=== PATIENT | female | born 1940 | race Caucasian/White ===

== ENCOUNTER 2017-10-13 12:45 | Day surgery (SDC) | payer MEDICARE, BC ==
[2017-10-13 13:21] VITALS: TEMP 98.3
[2017-10-13] MEDS ORDERED: BUPIVACAINE HCL 0.25% MPF 10 ML SOL INFIL ONE (13:40)
[2017-10-13] MEDS ORDERED: DEXAMETHASONE SOD PHOS PF 10 MG/ML SOL IJ ONE (13:40)
[2017-10-13 14:12] VITALS: BP 149/70; PULSE 69; RESP 20; O2SAT 99
== END 2017-10-13 14:25 | disposition home or self-care (01) | DRG 552 ==
LOC: SURG 12:45
PROVIDERS: ATTEND Nurse Anesthetist, Certified Registered
DX: M48.062 Spinal stenosis, lumbar region with neurogenic claudication (principal)
CPT/HCPCS: J1100

== ENCOUNTER 2017-12-09 11:45 | Day surgery (SDC) | payer MEDICARE, BC ==
[2017-12-09] MEDS ORDERED: LIDOCAINE HCL 1% MPF 30 SOL ONE (12:57)
[2017-12-09] MEDS ORDERED: BUPIVACAINE HCL 0.25% MPF 30 ML SOL INFIL ONE (12:57)
[2017-12-09 13:05] VITALS: RESP 16; TEMP 98.4
[2017-12-09 13:12] VITALS: BP 169/100; PULSE 74; O2SAT 97
== END 2017-12-09 13:48 | disposition home or self-care (01) | DRG 554 ==
LOC: SURG 11:45
PROVIDERS: ATTEND Nurse Anesthetist, Certified Registered
DX: M12.88 Other specific arthropathies, not elsewhere classified, other specified site (principal); E11.9 Type 2 diabetes mellitus without complications
CPT/HCPCS: J2001

== ENCOUNTER 2018-01-10 13:53 | Day surgery (SDC) | payer MEDICARE, BC ==
[2018-01-10] MEDS ORDERED: ROPIVACAINE HYDROCHLORIDE 5 MG/ML SOL ONE (14:05)
[2018-01-10] MEDS ORDERED: TRIAMCINOLONE ACETONIDE 40 MG/ML SUS ONE (14:05)
[2018-01-10] MEDS ORDERED: LIDOCAINE HCL 1% MPF 30 SOL ONE (14:07)
[2018-01-10 14:42] VITALS: O2SAT 97
[2018-01-10 15:07] VITALS: BP 161/74; PULSE 68; RESP 20; TEMP 98
== END 2018-01-10 15:30 | disposition home or self-care (01) | DRG 313 ==
LOC: SURG 13:53
PROVIDERS: ATTEND Nurse Anesthetist, Certified Registered
DX: R07.89 Other chest pain (principal)
CPT/HCPCS: J2795; J2001; J3300

== ENCOUNTER 2018-05-22 20:48 | Emergency (ER) | payer MEDICARE, BC ==
[2018-05-22 21:04] VITALS: RESP 20; TEMP 97.8
[2018-05-22] MEDS ORDERED: BENZOCAINE/MENTHOL 1 SPR TOP PRN (21:12)
[2018-05-22] MEDS ORDERED: TDAP VACCINE 0.5 ML SUS IM ONE ×2 (21:51→22:04)
[2018-05-22] MEDS ORDERED: BACITRACIN 500 U/GM OIN TOP ONE ×2 (22:04→22:10)
[2018-05-22 23:15] VITALS: BP 190/79; PULSE 68; O2SAT 97
== END 2018-05-22 23:00 | disposition home or self-care (01) | DRG 605 ==
LOC: ED 20:48
DX: S01.01XA Laceration without foreign body of scalp, initial encounter (principal); S09.90XA Unspecified injury of head, initial encounter; W19.XXXA Unspecified fall, initial encounter
CPT/HCPCS: 12002; 90471; 90715; 99284; A6402; A9270-GY

== ENCOUNTER 2018-06-30 10:22 | Day surgery (SDC) | payer MEDICARE, BC ==
[2018-06-30] MEDS ORDERED: TRIAMCINOLONE ACETONIDE 40 MG/ML SUS ONE (11:13)
[2018-06-30] MEDS ORDERED: BUPIVACAINE HCL 0.25% MPF 30 ML SOL INFIL ONE (11:14)
[2018-06-30 11:40] VITALS: PULSE 62; RESP 16; TEMP 98.3; O2SAT 97
[2018-06-30 11:55] VITALS: BP 197/93
== END 2018-06-30 12:06 | disposition home or self-care (01) | DRG 204 ==
LOC: SURG 10:22
PROVIDERS: ATTEND Nurse Anesthetist, Certified Registered
DX: R07.1 Chest pain on breathing (principal)
CPT/HCPCS: J3300

== ENCOUNTER 2018-08-23 11:58 | Day surgery (SDC) | payer MEDICARE, BC ==
[2018-08-23 12:47] VITALS: RESP 16
[2018-08-23] MEDS ORDERED: LIDOCAINE HCL 1% MPF 30 SOL ONE (12:55)
[2018-08-23] MEDS ORDERED: BUPIVACAINE HCL 0.5% MPF 10 ML SOL ONE (12:55)
[2018-08-23 13:36] VITALS: PULSE 71; TEMP 98.1; O2SAT 97
[2018-08-23 13:56] VITALS: BP 135/57
== END 2018-08-23 13:59 | disposition home or self-care (01) | DRG 554 ==
LOC: SURG 11:58
PROVIDERS: ATTEND Nurse Anesthetist, Certified Registered
DX: M12.88 Other specific arthropathies, not elsewhere classified, other specified site (principal); E11.9 Type 2 diabetes mellitus without complications
CPT/HCPCS: J2001

== ENCOUNTER 2018-09-07 13:02 | Day surgery (SDC) | payer MEDICARE, BC ==
[2018-09-07] MEDS ORDERED: BUPIVACAINE HCL 0.5% MPF 10 ML SOL ONE (14:01)
[2018-09-07] MEDS ORDERED: LIDOCAINE HCL 1% MPF 30 SOL ONE (14:01)
[2018-09-07 14:39] VITALS: PULSE 65; RESP 14; TEMP 98.1; O2SAT 98
[2018-09-07 14:50] VITALS: BP 147/78
== END 2018-09-07 14:56 | disposition home or self-care (01) | DRG 554 ==
LOC: SURG 13:02
PROVIDERS: ATTEND Nurse Anesthetist, Certified Registered
DX: M12.88 Other specific arthropathies, not elsewhere classified, other specified site (principal); E11.9 Type 2 diabetes mellitus without complications
CPT/HCPCS: J2001

== ENCOUNTER 2018-09-26 09:13 | Day surgery (SDC) | payer MEDICARE, BC ==
[2018-09-26] MEDS ORDERED: SODIUM CHLORIDE 0.9% FLUSH 10 ML SOL IV ONE (10:09)
[2018-09-26] MEDS ORDERED: LIDOCAINE HCL 2% MPF 10 ML SOL ONE (10:27)
[2018-09-26] MEDS ORDERED: LIDOCAINE HCL 1% MPF 30 SOL ONE (10:28)
[2018-09-26] MEDS ORDERED: BUPIVACAINE HCL 0.25% MPF 30 ML SOL INFIL ONE (10:28)
[2018-09-26] MEDS ORDERED: MIDAZOLAM 2 MG/2 ML SOL ONE (10:28)
[2018-09-26] MEDS ORDERED: FENTANYL 100MCG/2ML SOL ONE (10:28)
[2018-09-26] MEDS: TRIAMCINOLONE ACETONIDE 40 MG/ML SUS ONE ×2 (11:03→11:24)
[2018-09-26 11:22] VITALS: PULSE 63; RESP 16
[2018-09-26 12:04] VITALS: BP 141/89; TEMP 98.2; O2SAT 99
== END 2018-09-26 12:00 | disposition home or self-care (01) | DRG 554 ==
LOC: SURG 09:13
PROVIDERS: ATTEND Nurse Anesthetist, Certified Registered
DX: M12.9 Arthropathy, unspecified (principal)
CPT/HCPCS: J2250; J3010; J2001; J3300

== ENCOUNTER 2018-10-30 06:37 | Emergency (ER) | payer MEDICARE, BC ==
[2018-10-30 06:46] VITALS: TEMP 98.1
[2018-10-30] MEDS ORDERED: ONDANSETRON HCL 4 MG/2 ML SOL IV ONE (07:20)
[2018-10-30] MEDS ORDERED: ALBUTEROL/IPRATROPIUM 1 VIAL SOL INH ONE (07:21)
[2018-10-30] MEDS ORDERED: ONDANSETRON HCL 4 MG/2 ML SOL ONE (07:24)
[2018-10-30] MEDS ORDERED: ALBUTEROL/IPRATROPIUM 1 VIAL SOL ONE (07:24)
[2018-10-30] MEDS ORDERED: SODIUM CHLORIDE 0.9% 1000ML 1,000 ML IV SCH (07:30)
[2018-10-30 07:37] VITALS: RESP 20
[2018-10-30 07:37] LABS: HEMATOCRIT 39 % (35-47); HEMOGLOBIN 12.8 gm/dl (12.0-15.5); MEAN CORPUSCULAR HEMOGLOBIN 30.9 pg (27.0-32.0); MEAN CORPUSCULAR HGB CONC 33.1 gm/dl (32.0-36.0); MEAN CORPUSCULAR VOLUME 93 fL (81-99)
[2018-10-30 07:57] LABS: CALCIUM 8.8 mg/dl (8.5-10.1); CARBON DIOXIDE 22.2 mEq/L (21-32); CREATININE 1.28 mg/dl (0.60-1.00)
[2018-10-30 07:59] LABS: POTASSIUM 2.9 mMol/L (3.5-5.1)
[2018-10-30 08:01] LABS: METAMYELOCYTES%(MANUAL) 1; MONOCYTES % (MANUAL) 2 % (0-12); NEUTROPHILS % (MANUAL) 86 % (37-80); PLATELET MORPHOLOGY COMMENT ADEQUATE; POIKILOCYTOSIS SLIGHT AMT
[2018-10-30 08:02] LABS: BURR CELLS PRESENT; LYMPHOCYTES % (MANUAL) 11 % (10-50)
[2018-10-30] MEDS ORDERED: POTASSIUM CHLORIDE 10 MEQ TER PO ONE (08:24)
[2018-10-30 08:28] LABS: BAND NEUTROPHILS % (MANUAL) 0 %; BASOPHILS % (MANUAL) 0 % (0-3); EOSINOPHILS % (MANUAL) 0 % (0-9)
[2018-10-30] MEDS ORDERED: POTASSIUM CHLORIDE 10 MEQ TER ONE (08:29)
[2018-10-30 10:40] VITALS: BP 144/94; PULSE 91; O2SAT 98
== END 2018-10-30 10:32 | disposition home or self-care (01) | DRG 194 ==
LOC: ED 06:37
DX: J18.9 Pneumonia, unspecified organism (principal); N17.9 Acute kidney failure, unspecified; E87.6 Hypokalemia; R06.2 Wheezing
CPT/HCPCS: 36415; 71045; 80048; 85007; 85027; 96365; 96374; 99284; J2405; A9270-GY

== ENCOUNTER 2018-10-31 13:32 | Emergency (ER) | payer MEDICARE, BC ==
[2018-10-31 13:45] VITALS: RESP 18; TEMP 97.2
[2018-10-31 14:18] LABS: LACTIC ACID 1.4 mMol/L (0.0-2.0)
[2018-10-31 14:25] LABS: CALCIUM 8.9 mg/dl (8.5-10.1); CARBON DIOXIDE 28.1 mEq/L (21-32); POTASSIUM 4.2 mMol/L (3.5-5.1)
[2018-10-31] MEDS ORDERED: ONDANSETRON HCL 4 MG/2 ML SOL ONE (14:32)
[2018-10-31 14:35] LABS: HEMATOCRIT 38 % (35-47); HEMOGLOBIN 12.7 gm/dl (12.0-15.5); MEAN CORPUSCULAR HEMOGLOBIN 31.5 pg (27.0-32.0); MEAN CORPUSCULAR VOLUME 95 fL (81-99)
[2018-10-31] MEDS ORDERED: ONDANSETRON HCL 4 MG/2 ML SOL IV ONE (14:36)
[2018-10-31] MEDS ORDERED: SODIUM CHLORIDE 0.9% 500 ML 500 ML IV ONE (14:37)
[2018-10-31] MEDS ORDERED: SODIUM CHLORIDE 0.9% FLUSH 10 ML SOL IV PRN (14:38)
[2018-10-31] MEDS ORDERED: KETOROLAC TROMETHAMINE 30 MG/ML SOL ONE (14:45)
[2018-10-31 15:02] LABS: BAND NEUTROPHILS % (MANUAL) 5 %; BASOPHILS % (MANUAL) 0 % (0-3); EOSINOPHILS % (MANUAL) 0 % (0-9); LYMPHOCYTES % (MANUAL) 6 % (10-50); MONOCYTES % (MANUAL) 1 % (0-12); NEUTROPHILS % (MANUAL) 88 % (37-80); NORMAL RBCS PRESENT
[2018-10-31 15:21] VITALS: BP 182/85; PULSE 74; O2SAT 97
== END 2018-10-31 15:27 | disposition home or self-care (01) | DRG 392 ==
LOC: ED 13:32
DX: A08.4 Viral intestinal infection, unspecified (principal); E11.9 Type 2 diabetes mellitus without complications
CPT/HCPCS: 36415; 80048; 85007; 85027; 96365; 96374; 99283; 99284; J1885; J2405

== ENCOUNTER 2018-11-02 12:23 | Inpatient (IN) | payer MEDICARE, BC ==
[2018-11-02] MEDS ORDERED: SODIUM CHLORIDE 0.9% 1000ML 1,000 ML IV ONE (13:03)
[2018-11-02] MEDS ORDERED: ALBUTEROL NEB SOL 2.5MG/3ML 1 VIAL SOL NEB PRN (13:08)
[2018-11-02 13:57] LABS: BASOPHILS % (AUTO) 1 % (0-3); EOSINOPHILS % (AUTO) 0 % (0-9); HEMATOCRIT 37 % (35-47); HEMOGLOBIN 12.4 gm/dl (12.0-15.5); LYMPHOCYTES % (AUTO) 17.5 % (10-50); MEAN CORPUSCULAR HEMOGLOBIN 31.2 pg (27.0-32.0); MEAN CORPUSCULAR HGB CONC 33.3 gm/dl (32.0-36.0); MEAN CORPUSCULAR VOLUME 94 fL (81-99); MONOCYTES % (AUTO) 4.5 % (0-12); NEUTROPHILS % (AUTO) 76.9 % (37-80)
[2018-11-02 13:59] LABS: ALBUMIN 2.7 gm/dl (3.4-5.0); BILIRUBIN,TOTAL 0.7 mg/dl (0.2-1.0); CALCIUM 9.1 mg/dl (8.5-10.1); CARBON DIOXIDE 25.6 mEq/L (21-32); CREATININE 1.13 mg/dl (0.60-1.00); POTASSIUM 3.8 mMol/L (3.5-5.1); TOTAL PROTEIN 6.9 gm/dl (6.4-8.2)
[2018-11-02 14:05] LABS: LACTIC ACID 1.7 mMol/L (0.0-2.0)
[2018-11-02] MEDS: ALBUTEROL/IPRATROPIUM 1 VIAL SOL INH SCH ×3 (14:26→21:10)
[2018-11-02] MEDS ORDERED: POTASSIUM CHLORIDE 2 MEQ/ML SOL IV ONE (15:23)
[2018-11-02] MEDS: SODIUM CHLORIDE 0.45% 1000 ML 1,000 ML with POTASSIUM CHLORIDE 2 MEQ/ML 20 MEQ IV SCH (15:31)
[2018-11-02] MEDS ORDERED: SODIUM CHLORIDE 0.9% 50 ML 50 ML IV ONE (16:34)
[2018-11-02] MEDS ORDERED: CEFTRIAXONE 1 GM PDS ONE (16:34)
[2018-11-02] MEDS: CEFTRIAXONE 1 GM PDS 1 GM in SODIUM CHLORIDE 0.9% 50 ML 50 ML IV SCH (17:00)
[2018-11-02] MEDS ORDERED: DM/GUAIFENESIN SYRUP 10 ML SYRP PO PRN (17:45)
[2018-11-02] MEDS: ONDANSETRON 4 MG ODT PO PRN (20:47)
[2018-11-02] MEDS ORDERED: RANITIDINE HCL 150 MG TAB PO SCH (21:00)
[2018-11-02] MEDS: GABAPENTIN 300 MG CAP PO SCH (21:03)
[2018-11-02] MEDS: SERTRALINE HYDROCHLORIDE 50 MG TAB PO SCH (21:04)
[2018-11-02] MEDS: LISINOPRIL 5 MG TAB PO SCH (21:04)
[2018-11-02] MEDS: ACETAMINOPHEN 325 MG PO SCH (21:04)
[2018-11-02] MEDS: GLIMEPIRIDE 2 MG TAB PO SCH (21:09)
[2018-11-02] MEDS: ZOLPIDEM TARTRATE 5 MG TAB PO SCH (21:09)
[2018-11-02] MEDS: ENOXAPARIN 40 MG SOL SC SCH (21:10)
[2018-11-02] MEDS: TRIAMCINOLONE 0.1% CREAM CRE TOP SCH (22:06)
[2018-11-02] MEDS: ACYCLOVIR 400 MG TAB PO SCH (22:06)
[2018-11-03] MEDS ORDERED: POTASSIUM CHLORIDE 2 MEQ/ML SOL IV ONE ×3 (01:39→17:10)
[2018-11-03] MEDS: SODIUM CHLORIDE 0.45% 1000 ML 1,000 ML with POTASSIUM CHLORIDE 2 MEQ/ML 20 MEQ IV SCH ×3 (01:46→17:27)
[2018-11-03] MEDS: FAMOTIDINE 20 MG TAB PO SCH ×2 (06:33→17:00)
[2018-11-03] MEDS ORDERED: LEVOTHYROXINE SODIUM 50 MCG TAB PO SCH (09:00)
[2018-11-03] MEDS ORDERED: CEFTRIAXONE 1 GM PDS ONE (09:45)
[2018-11-03] MEDS ORDERED: SODIUM CHLORIDE 0.9% 50 ML 50 ML IV ONE (09:45)
[2018-11-03] MEDS: CEFTRIAXONE 1 GM PDS 1 GM in SODIUM CHLORIDE 0.9% 50 ML 50 ML IV SCH (09:59)
[2018-11-03] MEDS: GLIMEPIRIDE 2 MG TAB PO SCH ×3 (10:02→20:45)
[2018-11-03] MEDS: GABAPENTIN 300 MG CAP PO SCH ×5 (10:05→20:47)
[2018-11-03] MEDS: ONDANSETRON 4 MG ODT PO PRN (10:05)
[2018-11-03] MEDS: ENOXAPARIN 40 MG SOL SC SCH (10:07)
[2018-11-03] MEDS: TRIAMCINOLONE 0.1% CREAM CRE TOP SCH ×2 (10:08→20:59)
[2018-11-03] MEDS: ACYCLOVIR 400 MG TAB PO SCH ×5 (10:08→20:48)
[2018-11-03] MEDS: POLYETHYLENE GLYCOL 17 GM/1 TBS PDS PO SCH (10:08)
[2018-11-03] MEDS: ACETAMINOPHEN 325 MG PO SCH ×4 (10:11→23:01)
[2018-11-03] MEDS: ALBUTEROL/IPRATROPIUM 1 VIAL SOL INH SCH ×4 (10:16→20:50)
[2018-11-03] MEDS: LISINOPRIL 5 MG TAB PO SCH (11:15)
[2018-11-03] MEDS: HYDROCHLOROTHIAZIDE 25 MG TAB PO SCH (11:15)
[2018-11-03] MEDS: SERTRALINE HYDROCHLORIDE 50 MG TAB PO SCH (11:15)
[2018-11-03] MEDS: AZELASTINE HYDROCHLORIDE NAS SCH ×2 (11:30→20:49)
[2018-11-03] MEDS: CHLORHEXIDINE MC SCH ×3 (11:50→20:49)
[2018-11-03] MEDS: ZOLPIDEM TARTRATE 5 MG TAB PO SCH (22:02)
[2018-11-04] MEDS ORDERED: POTASSIUM CHLORIDE 2 MEQ/ML SOL IV ONE ×2 (00:36→08:01)
[2018-11-04] MEDS: SODIUM CHLORIDE 0.45% 1000 ML 1,000 ML with POTASSIUM CHLORIDE 2 MEQ/ML 20 MEQ IV SCH ×2 (01:02→12:20)
[2018-11-04] MEDS: FAMOTIDINE 20 MG TAB PO SCH (06:54)
[2018-11-04] MEDS ORDERED: LEVOTHYROXINE SODIUM 50 MCG TAB PO SCH (07:00)
[2018-11-04 07:08] LABS: BASOPHILS % (AUTO) 1 % (0-3); EOSINOPHILS % (AUTO) 3 % (0-9); HEMATOCRIT 34 % (35-47); HEMOGLOBIN 11.4 gm/dl (12.0-15.5); MEAN CORPUSCULAR HEMOGLOBIN 31.4 pg (27.0-32.0); MEAN CORPUSCULAR HGB CONC 33.4 gm/dl (32.0-36.0); MEAN CORPUSCULAR VOLUME 94 fL (81-99); MONOCYTES % (AUTO) 7.5 % (0-12); NEUTROPHILS % (AUTO) 56.7 % (37-80)
[2018-11-04 07:13] LABS: CALCIUM 8.9 mg/dl (8.5-10.1); CARBON DIOXIDE 26.3 mEq/L (21-32); CREATININE 0.91 mg/dl (0.60-1.00); POTASSIUM 4.7 mMol/L (3.5-5.1)
[2018-11-04 07:40] VITALS: BP 146/72; TEMP 98.3
[2018-11-04] MEDS: GLIMEPIRIDE 2 MG TAB PO SCH (08:23)
[2018-11-04] MEDS: HYDROCHLOROTHIAZIDE 25 MG TAB PO SCH (08:24)
[2018-11-04] MEDS: POLYETHYLENE GLYCOL 17 GM/1 TBS PDS PO SCH (08:25)
[2018-11-04] MEDS: GABAPENTIN 300 MG CAP PO SCH ×2 (08:25→12:26)
[2018-11-04] MEDS: LISINOPRIL 5 MG TAB PO SCH (08:26)
[2018-11-04] MEDS: ACETAMINOPHEN 325 MG PO SCH (08:26)
[2018-11-04] MEDS: ACYCLOVIR 400 MG TAB PO SCH ×2 (08:27→12:25)
[2018-11-04] MEDS: SERTRALINE HYDROCHLORIDE 50 MG TAB PO SCH (08:27)
[2018-11-04] MEDS ORDERED: FLUTICASONE PROPIONATE SPR NAS SCH (09:00)
[2018-11-04] MEDS ORDERED: SODIUM CHLORIDE 0.9% 50 ML 50 ML IV ONE (09:16)
[2018-11-04] MEDS ORDERED: CEFTRIAXONE 1 GM PDS ONE (09:16)
[2018-11-04] MEDS: CEFTRIAXONE 1 GM PDS 1 GM in SODIUM CHLORIDE 0.9% 50 ML 50 ML IV SCH (09:21)
[2018-11-04] MEDS: CHLORHEXIDINE MC SCH (09:22)
[2018-11-04] MEDS: AZELASTINE HYDROCHLORIDE NAS SCH (09:22)
[2018-11-04] MEDS: TRIAMCINOLONE 0.1% CREAM CRE TOP SCH (09:26)
[2018-11-04] MEDS: ALBUTEROL/IPRATROPIUM 1 VIAL SOL INH SCH ×2 (09:37→12:25)
[2018-11-04 09:38] VITALS: RESP 18
[2018-11-04] MEDS: ENOXAPARIN 40 MG SOL SC SCH (09:39)
[2018-11-04 12:41] VITALS: PULSE 75; O2SAT 98
== END 2018-11-04 13:25 | disposition home or self-care (01) | DRG 391 ==
LOC: ACUTE CARE 12:25
PROVIDERS: ADMIT Family Medicine; ATTEND Family Medicine
DX: R19.7 Diarrhea, unspecified (principal); J18.1 Lobar pneumonia, unspecified organism; E11.22 Type 2 diabetes mellitus with diabetic chronic kidney disease; N18.3 Chronic kidney disease, stage 3 (moderate); I10 Essential (primary) hypertension; R06.02 Shortness of breath; B02.9 Zoster without complications; R53.1 Weakness
CPT/HCPCS: 36415; 80048; 80053; 82962; 85025; 87040; 87205; 94150; 94640; 94760; J0696; J1650; J3480; A6232; A9270-GY

== ENCOUNTER 2018-11-23 12:56 | Day surgery (SDC) | payer MEDICARE, BC ==
[2018-11-23] MEDS ORDERED: TRIAMCINOLONE ACETONIDE 40 MG/ML SUS ONE (13:52)
[2018-11-23] MEDS ORDERED: BUPIVACAINE HCL 0.25% MPF 30 ML SOL INFIL ONE (13:53)
[2018-11-23 14:08] VITALS: PULSE 66
[2018-11-23 14:28] VITALS: BP 154/83; RESP 18; TEMP 97.4; O2SAT 98
== END 2018-11-23 14:48 | disposition home or self-care (01) | DRG 313 ==
LOC: SURG 12:56
PROVIDERS: ATTEND Nurse Anesthetist, Certified Registered
DX: R07.89 Other chest pain (principal); R73.03 Prediabetes
CPT/HCPCS: J3300

== ENCOUNTER 2018-12-06 09:46 | Day surgery (SDC) | payer MEDICARE, BC ==
[~2018-12-06 09:46] MED LIST: MIDAZOLAM 2 MG/2 ML SOL ONE
[2018-12-06] MEDS ORDERED: ACETAZOLAMIDE 250 MG PO ONE (09:52)
[2018-12-06] MEDS: TETRACAINE HCL 0.5 % 1 DROP SOL ONE ×3 (10:13→11:28)
[2018-12-06] MEDS: PHENYLEPHRINE HCL 10% OPHTHAL SOL ONE ×2 (10:14→10:28)
[2018-12-06] MEDS: KETOROLAC 0.5% OPTH 60 DROP SOL ONE ×2 (10:15→10:29)
[2018-12-06] MEDS: CYCLOPENTOLATE 1% SOL ONE ×2 (10:15→10:28)
[2018-12-06] MEDS ORDERED: IMPRIMIS ONE (11:20)
[2018-12-06] MEDS ORDERED: POVIDONE IODINE 5% SOL ONE (11:20)
[2018-12-06] MEDS ORDERED: LIDOCAINE HCL 1% MPF 30 SOL ONE (11:20)
[2018-12-06] MEDS ORDERED: BSS 500 ML 500 ML IR ONE (11:21)
[2018-12-06 12:07] VITALS: BP 156/96; PULSE 70; RESP 18; TEMP 97.4; O2SAT 99
== END 2018-12-06 12:23 | disposition home or self-care (01) | DRG 125 ==
LOC: SURG 09:46
PROVIDERS: ATTEND Ophthalmology
DX: H25.89 Other age-related cataract (principal); R73.03 Prediabetes
CPT/HCPCS: J2250; A9270-GY; J2001

== ENCOUNTER 2018-12-28 12:02 | Day surgery (SDC) | payer MEDICARE, BC ==
[2018-12-28] MEDS ORDERED: BUPIVACAINE HCL 0.25% MPF 30 ML SOL INFIL ONE (12:39)
[2018-12-28] MEDS: TRIAMCINOLONE ACETONIDE 40 MG/ML SUS ONE ×4 (12:50→13:00)
[2018-12-28 13:12] VITALS: BP 159/92; PULSE 74; RESP 16; TEMP 98.9; O2SAT 96
== END 2018-12-28 13:30 | disposition home or self-care (01) | DRG 554 ==
LOC: SURG 12:02
PROVIDERS: ATTEND Nurse Anesthetist, Certified Registered
DX: M12.9 Arthropathy, unspecified (principal); R73.03 Prediabetes
CPT/HCPCS: J3300

== ENCOUNTER 2019-01-03 06:53 | Day surgery (SDC) | payer MEDICARE, BC ==
[2018-12-28 13:12] VITALS: O2SAT 96
[2019-01-03] MEDS ORDERED: ACETAZOLAMIDE 250 MG PO ONE (06:59)
[2019-01-03] MEDS: TETRACAINE HCL 0.5 % 1 DROP SOL ONE ×3 (07:18→08:30)
[2019-01-03] MEDS: KETOROLAC 0.5% OPTH 60 DROP SOL ONE ×2 (07:19→07:31)
[2019-01-03] MEDS: CYCLOPENTOLATE 1% SOL ONE ×2 (07:19→07:30)
[2019-01-03] MEDS: PHENYLEPHRINE HCL 10% OPHTHAL SOL ONE ×2 (07:19→07:30)
[2019-01-03] MEDS ORDERED: FENTANYL 100MCG/2ML SOL ONE (08:08)
[2019-01-03] MEDS ORDERED: MIDAZOLAM 2 MG/2 ML SOL ONE (08:08)
[2019-01-03] MEDS ORDERED: BSS 500 ML 500 ML IR ONE (08:22)
[2019-01-03] MEDS ORDERED: LIDOCAINE HCL 1% MPF 30 SOL ONE (08:22)
[2019-01-03] MEDS ORDERED: POVIDONE IODINE 5% SOL ONE (08:23)
[2019-01-03] MEDS ORDERED: IMPRIMIS ONE (08:23)
[2019-01-03 08:54] VITALS: BP 132/74; PULSE 79; RESP 20; TEMP 97.1
== END 2019-01-03 09:18 | disposition home or self-care (01) | DRG 125 ==
LOC: SURG 06:53
PROVIDERS: ATTEND Ophthalmology
DX: H25.89 Other age-related cataract (principal); R73.03 Prediabetes
CPT/HCPCS: J2250; J3010; A9270-GY; J2001